=== PATIENT | male | born 1945 | race African-American/Black ===

== ENCOUNTER 2019-03-15 08:12 | Day surgery (SDC) | payer OTHER ==
[2019-03-15] MEDS: TETRACAINE 0.5% 4 ML OPH OPER (08:54)
[2019-03-15] MEDS: BROMFENAC SODIUM 1.7 ML OPH DROP OPER (08:54)
[2019-03-15] MEDS: LIDOCAINE 3.5% GEL TUBE OPER (08:54)
[2019-03-15] MEDS: PHENYLephrine 10% 5 ML OPH OPER (08:54)
[2019-03-15] MEDS: TROPICAMIDE 1% 15 ML OPH OPER (08:54)
[2019-03-15] MEDS: MOXIFLOXACIN 0.5% 3 ML OPH OPER (08:55)
[2019-03-15] MEDS: CYCLOPENTOLATE 2% 2 ML OPH OPER (08:55)
[2019-03-15] MEDS: LACTATED RINGER'S 1,000 ML IV (09:00)
[2019-03-15] MEDS ORDERED: OXYCODONE/ACETAMINOPHEN (5/325) TAB PO ×2 (09:30)
[2019-03-15] MEDS ORDERED: ONDANSETRON 4 MG INJ IV (09:30)
[2019-03-15] MEDS ORDERED: FENTAnyl 50 MCG/ML VIAL IV ×3 (09:30)
[2019-03-15] MEDS ORDERED: hydrALAzine 20 MG INJ IV (09:30)
[2019-03-15] MEDS ORDERED: LABETALOL HCL 20MG INJ IV (09:30)
[2019-03-15] MEDS ORDERED: ACETAMINOPHEN 500 MG TAB PO (09:30)
[2019-03-15] MEDS: LIDOCAINE 1% (MPF) 5 ML VIAL INJ (09:32)
[2019-03-15] MEDS: TETRACAINE 0.5% 4 ML OPH RIGHT EYE (09:32)
[2019-03-15] MEDS ORDERED: MIDAZOLAM 1 MG/ML 2 ML INJ (09:35)
[2019-03-15] MEDS: TOBRAMYCIN/DEXAMETH 3.5 GM OPH OINT RIGHT EYE (10:15)
[2019-03-15] MEDS: CARBACHOL 0.01% 1.5 ML OPH INJ IO (10:15)
== END 2019-03-15 12:10 | disposition home or self-care (01) ==
LOC: SDS 08:12
DX: H25.89 Other age-related cataract (principal); J44.9 Chronic obstructive pulmonary disease, unspecified
CPT/HCPCS: 66984